=== PATIENT | female | born 1955 | race Caucasian/White ===

== ENCOUNTER → 2019-10-31 09:07 | Outpatient (CLI) | payer BC, SELFPAY ==
[2019-10-31 09:39] LABS: Basophils % 0.6 % (0.1-2.0); Eosinophils # 0.2 K/mm3 (0.0-0.4); Hematocrit 45.1 % (37.0-47.0); Hemoglobin 14.8 g/dL (12.2-16.2); Lymphocytes # 1.7 K/mm3 (0.7-4.5); Lymphocytes % 35.8 % (10-50); Mean Corpuscular HGB Conc 32.9 g/dL (31.8-35.4); Mean Corpuscular Hemoglobin 30.5 pg (27.0-31.2); Mean Corpuscular Volume 92.7 fl (81-99); Mean Platelet Volume 7.8 fl (7.4-10.4); Monocytes # 0.2 K/mm3 (0.1-1.0); Monocytes % 3.3 % (1.7-9.3); Neutrophils # 2.7 K/mm3 (1.8-7.8); Neutrophils % 56.3 % (37.0-80.0); Platelet Count 238 K/mm3 (142-424); Red Blood Count 4.86 M/mm3 (4.20-5.40); Red Cell Distribution Width 13.7 % (11.5-17.5); White Blood Count 4.8 K/mm3 (4.8-10.8)
[2019-10-31 10:03] LABS: Chloride 106 mmol/L (98-107); Potassium 4.6 mmoL/L (3.5-5.1); Sodium 141 mmol/L (136-145)
[2019-10-31 10:05] LABS: Blood Urea Nitrogen 14 mg/dl (7-17); Estimated Glomerular Filt Rate 63 ml/min (>60); GFR (African American) 77 ML/MIN (>60)
[2019-10-31 10:06] LABS: Alanine Aminotransferase 17 U/L (12-78); Albumin Level 3.9 g/dl (3.5-5.0); Albumin/Globulin Ratio 1.6 (1.1-1.8); Alkaline Phosphatase 48 U/L (38-126); Anion Gap 10.6 mEq/L (5-15); Aspartate Amino Transferase 21 U/L (14-36); Bilirubin,Total 0.4 mg/dl (0.2-1.3); Calcium 9.4 mg/dl (8.4-10.2); Carbon Dioxide 29 mmol/L (22.0-30.0); Cholesterol 188 mg/dl (140-200); Globulin 2.4 g/dL (1.3-3.2); Glucose 91 mg/dl (74-100); Magnesium 2.1 mg/dl (1.6-2.3); Total Protein,Serum 6.3 g/dl (6.3-8.2); Triglycerides 138 mg/dl (30-150); VLDL Cholesterol 28 mg/dL (0-40)
[2019-10-31 10:07] LABS: Chol/HDL Ratio 3.5 (1-3.5); HDL Cholesterol 53 mg/dl (40-60)
[2019-10-31 10:18] LABS: Direct LDL Cholesterol 112.58 mg/dL (100-129)
[2019-10-31 10:23] LABS: Free T4 (Free Thyroxine) 0.92 ng/dl (0.78-2.19)
[2019-10-31 10:37] LABS: Thyroid Stimulating Hormone 2.14 uIU/mL (0.465-4.68)
== END ==
PROVIDERS: Visit Provider Physician Assistant
DX: R53.83 Other fatigue; R25.2 Cramp and spasm; Z13.220 Encounter for screening for lipoid disorders; R79.89 Other specified abnormal findings of blood chemistry
CPT/HCPCS: 36415; 80053; 80061; 83735; 84439; 84443; 85025

== ENCOUNTER 2020-03-11 17:39 | Emergency (ER) | payer BC, SELFPAY ==
[2020-03-11 18:06] VITALS: BMI 30.4
--- NOTE | 2020-03-11 18:07 | XR_ITS ---
PROCEDURE: XR TIBIA FIBULA RT 2V CLINICAL INDICATION: INJURY Posttraumatic pain COMPARISON: No exams were available for comparison FINDINGS: No fracture or dislocation. No lytic or blastic change. There is normal mineralization. There are mild osteoarthritic changes of the knee. There is diffuse soft tissue swelling of the lower leg. No radiopaque foreign body. Other findings:None. IMPRESSION: Soft tissue swelling otherwise negative Dictated by: Riccardo Amezcua MD 03/11/2020 23:46 Riccardo Amezcua MD in [place] 03/11/2020 23:46
[2020-03-11 18:25] VITALS: BP 129/76; PULSE 87; RESP 20; TEMP 36.8; O2SAT 98; BMI 30.4
--- NOTE | 2020-03-11 18:34 | HMH.EDUTC ---
[facility] [place] Impression: Injury of calf Disposition: Home, Self-Care Condition on Discharge: Good Instructions: DI for Contusion, How To Perform RICE (Rest, Ice, Compress, Elevate), How to Use a Walking Boot Additional Instructions: *No weight bearing *RICE, Rest the extremity, Ice 15-20 minutes as instructed in [facility] 5-6times daily, Compress- wear the gonzalez wrap Walking boot as discussed as much as possible to help reduce swelling and pain, Elevate the extremity when at rest *Walking boot is for support and help control swelling, use it except in the shower. Be sure that is not to tight but not to loose either Use crutches rollator or walker to ambulate, DO NOT walk on leg *Elevate and ice continued throughout the weekend when resting *Ibuprofen every 6-8 hours as needed for pain an inflammation if your doctor has told you that you can take it. If need something more can take Tylenol in between doses of Ibuprofen to help Immediately follow up with your family doctor for new or worsening of symptoms, or no noticeable improvement over the next 3-[address] Swanson office will call you on Saturday with appointment time make sure you answer when they call Stay off foot/leg Straight to ER if any life threatening symptoms No work until cleared by Dr Swanson Referrals: Valerie Baron PA [Primary Care Provider] - As needed Yessenia Swanson MD [Physician] - Forms: Work/School Release Medical Decision Making - Elias Inquiry Pt receiving controlled substance: No Elias was queried for this patient: No Vital Signs: 03/11/20 18:25 03/11/20 19:16 Temperature 98.2 F 98.2 F Temperature Source Oral Pulse Rate 87 Pulse Rate [Right Brachial] 87 Respiratory Rate 20 20 Blood Pressure 129/76 Blood Pressure [Right Arm] 129/76 Blood Pressure Mean [Right Arm] 93 Blood Pressure Source [Right Arm] Automatic Cuff Blood Pressure Position [Right Arm] Sitting 02 Sat by Pulse Oximetry 98 Oxygen Delivery Method Room Air Orders (Tests/Meds): ORDERS Category Date Time Status Tibia/fibula XR right 2 views [XR tibia fibula RT 2V] Exams 03/11/20 18:07 Taken Stat - Radiology Data #1 Image(s): Tib/Fib Image Reviewed: Yes I reviewed the patient's radiology image Preliminary Findings: No Fracture Seen No acute fracture, soft tissue swelling - Physician Consults Physician Consulted: sky Time: 18:55 Reason -: Orthopedic Eval/Care Comment/Response: Spoke with Dr Swanson and she viewed xray and agreed No acute fracture, performed Booker test and no planter flex noted in affected leg. Sky recommended walking boot, crutches/walker and rice stay off of leg and the office would call her on Saturday with appointment [facility] [place] - General Stated complaint: AO 03/11/20 Injury to r leg Time Seen by Provider: 03/11/20 18:36 Mode of Arrival: Ambulatory Source of Information: Patient Limitations: No Limitations Description of Symptoms (Recalled from Triage Doc. by RN): PATIENT STATES SHE WAS SITTING IN A PORCH SWING APPROX 1700 THIS AFTERNOON WHEN IT BROKE AND HIT HER IN THE BACK OF HER RIGHT LOWER LEG. BRUISING NOTED. HEENT Symptoms (Recalled from RN notes): No Resp Symptoms (Recalled from RN notes): No Skin Symptoms (Recalled from RN notes): No MS Symptoms (Recalled from RN notes): Yes Functional Status (Recalled from RN notes): WNL - History of Present Illness Provider Complaint: Patient states that she was swinging on her porch swing earlier when it broke and she fell and the swing hit her in the back of her right leg in her calf area States that she had immediate bruising and she grabbed a ice pack and placed it on it States that she noticed it immediately started to swell and bruise and hurt when she would walk on it - Related Data Allergies Allergy/AdvReac Type Severity Reaction Status Date / Time No Known Allergies Allergy Verified 09/17/19 09:24 - Worker's Comp Is this a Worker's
[2020-03-11 19:16] VITALS: BP 129/76; PULSE 87; RESP 20; TEMP 36.8; O2SAT 98
== END 2020-03-11 19:18 | disposition home or self-care (01) ==
PROVIDERS: Emergency Provider Nurse Practitioner; PCP Physician Assistant
DX: S89.91XA Unspecified injury of right lower leg, initial encounter (principal); W18.09XA Striking against other object with subsequent fall, initial encounter; Y92.018 Other place in single-family (private) house as the place of occurrence of the external cause
CPT/HCPCS: 73590; 99201

== ENCOUNTER → 2020-04-14 12:21 | Outpatient (CLI) | payer BC, SELFPAY | PROVIDERS: Visit Provider Nurse Practitioner Family | DX: L03.115 Cellulitis of right lower limb (principal) | CPT/HCPCS: 87070; 87077; 87186; 87205 ==

== ENCOUNTER 2020-09-27 15:30 | Outpatient (RCR) | payer BC, SELFPAY ==
--- NOTE | 2020-04-14 10:49 | HMH.PTOPWND ---
Rehab Outpt Wound Evaluation Rehab OP Wound Evaluation Start: 04/14/20 09:36 Freq: Status: Active Protocol: Document 04/14/20 10:39 RAJAT (Rec: 04/14/20 10:49 PHORENEE [id number]) Electronically Signed By Kevin Panchal, PT 04/14/20 10:39 Subjective/History History History Pt is 65 yowf who presents with R posterior calf wounds x ~ 2 wks after initial injury 03/11/2020. She reports she fell off of her porch swing with resulting R calf bruising . as the hematoma healed she peeled off an area of suspected skin and found a wound underneath. She reports no significant PMH, but does reports edema in B LE frequently at baseline. Subjective Subjective Pt reports tenderness throughout the seth-wound area 3/4. Wound Eval Wound Right Posterior Lateral Calf Wound Type Contusion Is This a Chronic Wound Yes Wound Length (cm) 3.8 Wound Width (cm) 3.8 Wound Depth (cm) 0.7 Wound Bed Appearance Beefy Red,Yellow Percentage Granulated (%) 50 Percentage of Slough (%) 50 Wound Margins Description Well Defined Tunneling Position 10 Tunneling Depth (cm) 4.4 Surrounding Tissue Appearance Crowder Edema Type Pitting Edema Degree 2+ Query Text:1+ Trace, Barely Detectable, Rebound 15-30 seconds 2+ Moderate, Slight Indentation, Rebound 10-20 seconds 3+ Deep, Deeper Indentation, Rebound > 30 seconds 4+ Very Deep, Rebound > 60 seconds Edema Appearance Puffy Drainage Description Serosanguineous Drainage Amount Small Wound Topical Solution/Irrigant Saline Irrigant Packing Type Specialty Absorptive Comment versatel, opticell Primary Dressing Composite Comment optifoam gentle Wound Secondary Dressing Type Gauze Roll/Wrap,Adhering Gauze Roll Wound Debridement Method Sharps,Forceps,Gauze Wound Debridement Amount of Tissue Moderate Removed Wound Debridement Result Healthy Tissue Revealed Dressing Change Patient Tolerance Tolerated Well Right Posterior Medial Calf Wound Type Contusion Is This a Chronic Wound
--- NOTE | 2020-05-17 16:16 | HMH.RHREAS ---
Rehab Reassessment Rehab OP Re-assessment Start: 05/17/20 16:12 Freq: Status: Active Protocol: Document 05/17/20 16:13 RAJAT (Rec: 05/17/20 16:16 RAJAT [id number]) Electronically Signed By Kevin Panchal, PT 05/17/20 16:13 Rehab Re-assessment Subjective Subjective Pt reports less pain in the R lower leg, more itching noted. Objective Objective Notes R Calf wounds (in cm)- Medial: L= 3.2, W= 4.3, Tunneling @ 1 o'clock= 0.5 Lateral: L= 4.0, W=3.2 Assessment Progress Assessment Progressing as Expected Assessment Notes Pt with no real depth to wounds noted at this time, full granulation tissue present. Drainage continues to be increased, but non- purulent. Patient goals met ST,2,3 Goals Not Met LT,2,3,4 Revised Goals none Plan Plan Continue per initial POC. Frequency of Therapy 2 x/wk Duration of therapy 8 wks Time and Billing Re-Eval Time 15 Re-Eval Billing Units 1 PHYSICIAN CERTIFICATION: I certify the specified therapy services for Esperanza Burden are required, authorized, and reviewed every 30 days.
--- NOTE | 2020-06-23 16:27 | HMH.RHREAS ---
Rehab Reassessment Rehab OP Re-assessment Start: 05/17/20 16:12 Freq: Status: Active Protocol: Document 06/23/20 16:25 RAJAT (Rec: 06/23/20 16:26 RAJAT [id number]) Electronically Signed By Kevin Panchal, PT 06/23/20 16:25 Rehab Re-assessment Subjective Subjective Pt with no new c/o pain, less seth-wound tenderness. Objective Objective Notes R posterior calf wound: L= 5.8 cm, W= 5.2 cm Assessment Progress Assessment Progressing as Expected Assessment Notes Improving epithelial tissue and less drainage noted. Patient goals met ST,2,3 Goals Not Met LT,2,3,4 Revised Goals none Plan Plan Continue per initial POC. Frequency of Therapy 2 x/wk Duration of therapy 8 wks Time and Billing Re-Eval Time 15 Re-Eval Billing Units 1 PHYSICIAN CERTIFICATION: I certify the specified therapy services for Esperanza Burden are required, authorized, and reviewed every 30 days.
--- NOTE | 2020-07-26 16:28 | HMH.RHREAS ---
Rehab Reassessment Rehab OP Re-assessment Start: 05/17/20 16:12 Freq: Status: Active Protocol: Document 07/26/20 16:26 RAJAT (Rec: 07/26/20 16:28 RAJAT [id number]) Electronically Signed By Kevin Panchal, PT 07/26/20 16:26 Rehab Re-assessment Subjective Subjective Pt with no c/o increased pain or discomfort. Reports no R LE edema. Objective Objective Notes R calf wound: L= 4.2 cm, W= 4. 9 cm. Granulation at wound base. Drainage remains heavy, serous in nature. Assessment Progress Assessment Progressing as Expected Assessment Notes Wound appears to be very healthy at base, but some stagnation is likely at this point. Continues to drain copious amts of serous fluid. Patient goals met ST,2,3 Goals Not Met LT,2,3,4 Revised Goals none Plan Plan Continue per initial POC. Frequency of Therapy 2 x/wk Duration of therapy 8 wks Time and Billing Re-Eval Time 15 Re-Eval Billing Units 1 PHYSICIAN CERTIFICATION: I certify the specified therapy services for Esperanza Burden are required, authorized, and reviewed every 30 days.
== END 2020-09-27 15:35 | disposition home or self-care (01) ==
LOC: PT 15:30
PROVIDERS: PCP Physician Assistant; Visit Provider Nurse Practitioner Family
DX: L03.90 Cellulitis, unspecified (principal); S81.801D Unspecified open wound, right lower leg, subsequent encounter
CPT/HCPCS: 97140; 97162; 97164; 97597; 97598; 97760

== ENCOUNTER → 2021-01-03 09:21 | Outpatient (CLI) | payer BC, SELFPAY ==
--- NOTE | 2021-01-03 09:25 | XR_ITS ---
PROCEDURE: XR DEXA AXIAL SKELETON CLINICAL HISTORY: SCREENING FOR OSTEPOROSIS,POST MENOPAUSAL COMPARISON: No exams were available for comparison FINDINGS: The right hip BMD is 0.621 with a T-score of -2.1. The left hip BMD is 0.726 with a T-score of -1.8. The lumbar spine BMD is 0.850 with a T-score of -1.8. IMPRESSION: This patient is considered osteopenic according to the World Health Organization criteria. Bone density is between 10 and 25 percent below young normal. Fracture risk is moderate. Treatment is advised. Based on these results a follow-up exam is recommended in 2 years. Dictated by: Abraham Randall MD 01/06/2021 11:15 Abraham Randall MD in [place] 01/06/2021 11:15
== END ==
PROVIDERS: PCP Physician Assistant; Visit Provider Physician Assistant
DX: Z13.820 Encounter for screening for osteoporosis (principal); Z78.0 Asymptomatic menopausal state
CPT/HCPCS: 77080

== ENCOUNTER → 2021-02-13 16:52 | Outpatient (CLI) | payer OTHER, SELFPAY ==
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
== END ==
PROVIDERS: PCP Family Medicine; Visit Provider Family Medicine
DX: S13.4XXA Sprain of ligaments of cervical spine, initial encounter (principal)
CPT/HCPCS: 72050

== ENCOUNTER → 2022-01-13 10:06 | Outpatient (CLI) | payer BC, SELFPAY ==
[2022-01-13 10:16] LABS: Basophils # 0.1 K/mm3 (0-0.2); Basophils % 1.8 % (0.1-2.0); Eosinophils # 0.2 K/mm3 (0.0-0.4); Eosinophils % 3.1 % (0.1-12.0); Hematocrit 46.4 % (37.0-47.0); Hemoglobin 14.2 g/dL (12.2-16.2); Lymphocytes # 1.6 K/mm3 (0.7-4.5); Lymphocytes % 27.8 % (10-50); Mean Corpuscular HGB Conc 30.7 g/dL (31.8-35.4); Mean Corpuscular Hemoglobin 30.8 pg (27.0-31.2); Mean Corpuscular Volume 100.4 fl (81-99); Mean Platelet Volume 7.8 fl (7.4-10.4); Monocytes # 0.3 K/mm3 (0.1-1.0); Monocytes % 4.5 % (1.7-9.3); Neutrophils # 3.6 K/mm3 (1.8-7.8); Neutrophils % 62.8 % (37.0-80.0); Platelet Count 220 K/mm3 (142-424); Red Blood Count 4.62 M/mm3 (4.20-5.40); Red Cell Distribution Width 13.8 % (11.5-17.5); White Blood Count 5.8 K/mm3 (4.8-10.8)
[2022-01-13 11:01] LABS: Chloride 109 mmol/L (98-107)
[2022-01-13 11:02] LABS: Potassium 4.8 mmoL/L (3.5-5.1); Sodium 140 mmol/L (136-145)
[2022-01-13 11:04] LABS: Alanine Aminotransferase 22 U/L (12-78); Alkaline Phosphatase 43 U/L (38-126); Anion Gap 10.8 mEq/L (5-15); Aspartate Amino Transferase 37 U/L (14-36); Bilirubin,Total 0.8 mg/dl (0.2-1.3); Blood Urea Nitrogen 17 mg/dl (7-17); Carbon Dioxide 25 mmol/L (22.0-30.0); Cholesterol 159 mg/dl (140-200); Estimated Glomerular Filt Rate 72 ml/min (>60); GFR (African American) 87 ML/MIN (>60); Triglycerides 128 mg/dl (30-150); VLDL Cholesterol 26 mg/dL (0-40)
[2022-01-13 11:05] LABS: Albumin Level 4.1 g/dl (3.5-5.0); Albumin/Globulin Ratio 1.5 (1.1-1.8); Calcium 9.5 mg/dl (8.4-10.2); Chol/HDL Ratio 3.2 (1-3.5); Globulin 2.7 g/dL (1.3-3.2); Glucose 94 mg/dl (74-100); HDL Cholesterol 50 mg/dl (40-60); Magnesium 1.9 mg/dl (1.6-2.3); Total Protein,Serum 6.8 g/dl (6.3-8.2)
[2022-01-13 11:16] LABS: Direct LDL Cholesterol 63.98 mg/dL (100-129)
[2022-01-13 11:36] LABS: Thyroid Stimulating Hormone 1.51 uIU/mL (0.465-4.68)
== END ==
PROVIDERS: PCP Physician Assistant; Visit Provider Physician Assistant
DX: R25.2 Cramp and spasm (principal); Z13.220 Encounter for screening for lipoid disorders
CPT/HCPCS: 36415; 80053; 80061; 83735; 84443; 85025

== ENCOUNTER → 2023-01-14 08:19 | Outpatient (CLI) | payer BC, SELFPAY ==
[2023-01-14 10:33] LABS: Chloride 106 mmol/L (98-107); Potassium 4.8 mmoL/L (3.5-5.1); Sodium 140 mmol/L (136-145)
[2023-01-14 10:35] LABS: Alanine Aminotransferase 23 U/L (12-78); Alkaline Phosphatase 57 U/L (38-126); Aspartate Amino Transferase 25 U/L (14-36); Bilirubin,Total 0.3 mg/dl (0.2-1.3); Blood Urea Nitrogen 29 mg/dl (7-17); Estimated Glomerular Filt Rate 62 ml/min (>60); GFR (African American) 76 ML/MIN (>60)
[2023-01-14 10:36] LABS: Albumin Level 4.2 g/dl (3.5-5.0); Albumin/Globulin Ratio 1.8 (1.1-1.8); Anion Gap 15.8 mEq/L (5-15); Calcium 9.1 mg/dl (8.4-10.2); Carbon Dioxide 23 mmol/L (22.0-30.0); Chol/HDL Ratio 2.9 (1-3.5); Cholesterol 177 mg/dl (140-200); Globulin 2.4 g/dL (1.3-3.2); Glucose 83 mg/dl (74-100); HDL Cholesterol 61 mg/dl (40-60); Total Protein,Serum 6.6 g/dl (6.3-8.2); Triglycerides 166 mg/dl (30-150); VLDL Cholesterol 33 mg/dL (0-40)
[2023-01-14 10:44] LABS: NT Pro Brain Natriuretic Pep. 61.9 pg/mL (0-125)
== END ==
PROVIDERS: PCP Physician Assistant; Visit Provider Physician Assistant
DX: R79.89 Other specified abnormal findings of blood chemistry (principal); R60.0 Localized edema; Z13.220 Encounter for screening for lipoid disorders; Z79.899 Other long term (current) drug therapy; R06.02 Shortness of breath
CPT/HCPCS: 36415; 80053; 80061; 83880

== ENCOUNTER → 2023-01-18 08:16 | Outpatient (CLI) | payer BC, SELFPAY ==
--- NOTE | 2023-01-18 08:21 | MM_ITS ---
PROCEDURE INFORMATION: Exam: Bilateral Screening 3D Mammography Exam date and time: 01/18/2023 8:23 AM Age: 68 years old Clinical indication: Screening examination TECHNIQUE: Imaging protocol: Bilateral Screening tomosynthesis and 2D mammography including computer-aided detection (CAD) when performed. COMPARISON: DMSB DIG MAMM-SCREEN DEANGELO 02/26/2014 4:04 PM FINDINGS: MAMMOGRAPHY: Breast composition: The breasts are almost entirely fatty. Mass: None. Architectural distortion: None. Calcifications: No suspicious calcifications. Asymmetric density: None. Skin thickening: None. Axillary adenopathy: None. IMPRESSION: No mammographic evidence of malignancy. Annual screening is recommended unless otherwise clinically indicated. ASSESSMENT: BI-RADS Category 1: Negative
--- NOTE | 2023-01-18 08:21 | XR_ITS ---
FINAL REPORT CLINICAL HISTORY: Postmenopausal COMPARISON: 01/03/2021 FINDINGS: Using L1-4, the bone mineral density of the spine is 0.861 g/cm2, corresponding to T-score of -1.7. Using the left hip, the bone mineral density of the femoral neck is 0.706 g/cm2, corresponding to a T-score of -1.9. Using the right hip: The bone mineral density of the femoral neck is 0.606 g/cm2, corresponding to a T-score of -2.2. FRAX 10 year fracture risk is 11 for a hip fracture and 1.9 for a major osteoporotic fracture. IMPRESSION: Low bone mineral density of the lumbar spine and hips not significantly changed as compared to the prior exam. NOTE: T-score: Standard deviation compared with peak bone mass of young adult mean. *Following the recommendations of the International Society of Bone densitometry, classification of hip BMD is based on the lower of two T-scores; total hip or femoral neck. Reviewed, Interpreted and Dictated by Rajendra Hartley III, MD Transcribed by Jessica García Authenticated and [facility]
== END ==
PROVIDERS: PCP Physician Assistant; Visit Provider Physician Assistant
DX: R06.02 Shortness of breath (principal); Z12.31 Encounter for screening mammogram for malignant neoplasm of breast; Z78.0 Asymptomatic menopausal state
CPT/HCPCS: 77063; 77067; 77080; 93306

== ENCOUNTER 2024-02-13 09:03 | Emergency (ER) | payer BC, SELFPAY ==
[2024-02-13] VITALS (8 sets, daily range): BP systolic 130–196; BP diastolic 79–94; PULSE 64–78; RESP 16; TEMP 36.7–36.8; O2SAT 97–99; BMI 34.5
--- NOTE | 2024-02-13 09:23 | ECG_ITS ---
APPROVED REPORT Exam: Resting ECG HR:83 bpm ECG Measurements Heart Rate 83 AXES OK 152 P 141 QRSd 88 QRS -5 QT 346 T 101 QTc 386 Conclusion sinus rhythm Electronically signed by : PEPITO CONTEH, 02/14/2024 08:48:45
--- NOTE | 2024-02-13 09:24 | PC.NURSE ---
dr de la cruz at bedside
--- NOTE | 2024-02-13 09:27 | CT_ITS ---
FINAL REPORT CLINICAL HISTORY: Severe R sided headache, R sided facial droop COMPARISON: None FINDINGS: CT NECK ANGIO, WITHOUT AND WITH CONTRAST TECHNIQUE: Thin section axial CT with IV contrast supplemented with 3D MIP reconstruction NASCET criteria and technique was utilized during interpretation. FINDINGS: Aortic arch: Arch shows no significant narrowing. Great vessel origins are widely patent. Right carotid: No significant stenosis is seen of the cervical common or internal carotid artery. Left carotid: No significant stenosis is seen of the cervical common or internal carotid artery. Vertebrals: Right vertebral artery is dominant. No significant stenosis is present. IMPRESSION: No significant stenosis of the cervical carotid arteries This study was performed using automated techniques to achieve radiation exposure as low as reasonably Reviewed, Interpreted and Dictated by Dustin Zamudio MD Transcribed by Tanya Stanford Authenticated and [facility]
--- NOTE | 2024-02-13 09:27 | CT_ITS ---
FINAL REPORT CLINICAL HISTORY: Severe R sided headache, R sided facial droop COMPARISON: None FINDINGS: CTA HEAD TECHNIQUE: Thin section axial CT with contrast with 3D MIP reconstruction FINDINGS: No aneurysm is seen. Major intracranial vessels are patent without significant stenosis. . IMPRESSION: Unremarkable This study was performed using automated techniques to achieve radiation exposure as low as reasonably achievable Reviewed, Interpreted and Dictated by Dustin Zamudio MD Transcribed by Tanya Stanford Authenticated and . [facility]
--- NOTE | 2024-02-13 09:27 | CT_ITS ---
FINAL REPORT TECHNIQUE: Axial imaging of the head was obtained without contrast. This study was performed with techniques to keep radiation doses as low as reasonably achievable, (ALARA). Individualized dose reduction techniques using automated exposure control or adjustment of mA and/or kV according to the patient''s size were employed. CLINICAL HISTORY: Severe R sided headache, R sided facial droop COMPARISON: None FINDINGS: The ventricles are normal in size. There is no evidence of hemorrhage. No masses are identified. No extra-axial fluid is seen. The sinuses are normal. There is no acute osseous abnormality. IMPRESSION: No acute intracranial abnormality. Reviewed, Interpreted and Dictated by Dustin Zamudio MD Transcribed by Tanya Stanford Authenticated and [facility]
[2024-02-13] MEDS: ASPIRIN 325MG TABLET 325 MG PO (09:38)
[2024-02-13] MEDS: ACETAMINOPHEN 1,000MG/100ML VIAL 1000 MG IV (09:38)
[2024-02-13] MEDS: DEXAMETHASONE 4MG/ML 1ML VIAL 10 MG IV (09:39)
[2024-02-13] MEDS: KETOROLAC 30MG/ML VIAL 15 MG IV (09:39)
[2024-02-13] MEDS: diphenhydrAMINE 50MG/ML VIAL 25 MG IV (09:39)
[2024-02-13] MEDS: PROCHLORPERAZINE 10MG/2ML VIAL 10 MG IV (09:39)
--- NOTE | 2024-02-13 09:44 | HMH.EDGENADL ---
Discharge Plan Disposition Patient Disposition: Home, Self-Care Prescriptions Prescriptions: New prednisone 20 mg tablet 40 mg PO DAILY 5 Days Qty: 10 0RF Referrals Follow up/Referrals: Valerie Baron PA [Primary Care Provider] - See instructions Activity Restrictions/Add. Instructions Additional Instructions/Restrictions: Call your family doctor to establish care for this visit to the emergency department and schedule follow-up within 48 hours to ensure improvement. If you have any worsening of your condition or any other concerning signs or symptoms, return to the emergency department or your primary care doctor for further evaluation. Prednisone 40 mg for 5 days. Clinical Impressions Clinical Impression: Rodriguez's palsy Print Language Print Language: Slovenian Discharge ED Provider: J Luis Sanchez General Adult HPI General Chief complaint: Neuro Symptoms/Deficit Stated complaint: headache, face swollen Time Seen by Provider: 02/13/24 09:19 Mode of Arrival: Ambulatory Source of Information: Patient Limitations: No Limitations Description of Symptoms (Recalled from ER Triage Doc. by RN): pt c/o a PINK X2d that is a dull ache, feels heavy, is a 2/10, and comes and goes. pt also reports she woke up this morning with the right side of her tongue tingling and R facial droop. Upon arrival from the [facility] the NIH was 3 for complete facial droop on the R side. BSFS @0921 85. pt also presents with BLE 2+ edema, she denies heart failure dx. pt has a hx of bells palsy. History of Present Illness HPI narrative: Please note that above description of symptoms, in this electronic medical record under categorization of recalled from ER triage doctor by RN are reflective of an initial nursing assessment, however, is not reflective of my full history and physical exam that was personally taken and clarified. Consequentially, this preceding description of symptoms, which may include the patient's categorized chief complaint in the EMR, do not reflect my personal clinical impression, and the ultimate description of history of present illness and patient stated complaints should be deferred to this section of the note. Unless stated otherwise or congruent with this section of the note, additional signs, symptoms, or incongruence should be interpreted as inaccurate with my clinical impression. Related Data Previous Rx's ?Medication ?Instructions ?Recorded prednisone 20 mg tablet 40 mg (2 x 20 mg) PO DAILY 5 days 02/13/24 #10 tabs Allergies Allergy/AdvReac Type Severity Reaction Status Date / Time No Known Allergies Allergy Verified 02/13/24 09:45 [facility] Disclaimer: The information contained in this section may have been updated after the patient was seen, as this information can be updated by other users. Social History Smoking Status: Never smoker alcohol intake: never current occupational status: other Travel in the last 8 weeks: None ROS Obtained: Yes All systems reviewed & no additional complaints except as documented Physical Exam General General appearance: alert and in no apparent distress Head Head exam: atraumatic and normocephalic Eye Eye exam: Present PERRL, EOMI and other (Patient unable to fully close right eye); Absent conjunctival injection ENT ENT exam: Present mucous membranes moist Neck Neck exam: Present normal inspection, full ROM and trachea midline Respiratory Respiratory exam: Present normal lung sounds bilaterally; Absent respiratory distress, wheezes, stridor, accessory muscle use or prolonged expiratory phase Cardiovascular Cardiovascular exam: Present regular rate, normal rhythm and other (Pulses equal symmetric in upper and lower extremities) Abdominal Exam Abdominal exam: Present soft; Absent distention, tenderness or pulsatile mass Extremities Exam Extremities exam: Present edema (Bilateral nonpitting lower extremity) Neurological Exam Neurological exam: Present alert, oriented X3, normal gait and motor sensory deficit; Absent CN II-XII intact Skin Skin exam: Present warm and dry; Absent diaphoresis or erythema Medical Decision Making Medical Records Medical records reviewed: Yes I reviewed the patient's medical records. Elias Inquiry Pt receiving controlled substance: No Elias was queried for this patient: No Vital Signs: 02/13/24 09:04 02/13/24 09:20 02/13/24 09:31 Temperature 98.0 F 98.2 F Temperature Source Oral Oral Pulse Rate 78 Pulse Rate [Left] 78 Pulse Rate [Radial] 78 Respiratory Rate 16 16 Blood Pressure 156/83 H Blood Pressure [Right Arm] 187/94 H 196/93 H Blood Pressure Mean 130 Blood Pressure Mean [Right Arm] 125 127 Blood Pressure Source [Right Arm] Automatic Cuff Automatic Cuff Blood Pressure Position [Right Arm] Sitting Sitting 02 Sat by Pulse Oximetry 98 99 98 Oxygen Delivery Method Room Air Room Air Room Air 02/13/24 10:00 02/13/24 10:31 02/13/24 11:01 Temperature Temperature Source Pulse Rate 77 65 67 Pulse Rate [Left] Pulse Rate [Radial] Respiratory Rate Blood Pressure 138/86 150/82 H 140/79 Blood Pressure [Right Arm] Blood Pressure Mean 114 Blood Pressure Mean [Right Arm] Blood Pressure Source [Right Arm] Blood Pressure Position [Right Arm] 02 Sat by Pulse Oximetry 97 98 99 Oxygen Delivery Method Room Air Room Air Room Air Lab Data Lab Results 02/13/24 09:40: WBC 5.9, RBC 4.90, Hgb 15.3, Hct 45.8, MCV 93.3, MCH 31.2, MCHC 33.5, RDW 13.9, Plt Count 230, MPV 7.6, Neut % (Auto) 60.6, Lymph % (Auto) 29.3, [place] % (Auto) 4.3, Eos % (Auto) 5.1, Baso % (Auto) 0.8, Neut # (Auto) 3.6, Lymph # (Auto) 1.7, [place] # (Auto) 0.3, Eos # (Auto) 0.3, Baso # (Auto) 0.1, Sodium 141, Potassium 4.2, Chloride 109 H, Carbon Dioxide 26, Anion Gap 10.2, BUN 21 H, Creatinine 1.00, Estimated Creat Clear 73, Estimated GFR 55 L, Est GFR ( Amer) 67, Glucose 94, Calcium 9.4, Total Bilirubin 0.5, AST 36, ALT 39, Alkaline Phosphatase 66, Troponin I < 0.01, NT-Pro-B Natriuret Pep 186 H, Total Protein 7.2, Albumin 4.3, Globulin 2.9, Albumin/Globulin Ratio 1.5 02/13/24 09:40 02/13/24 09:40 Orders (Tests/Meds): ED MEDICATIONS Discontinued Medications Generic Name Dose Route Start Last Admin Trade Name aRshi PRN Reason Stop Dose Admin Acetaminophen 1,000 mg 02/13/24 09:27 02/13/24 09:38 Acetaminophen 1,000mg/100ml Vial IV 02/13/24 09:28 1,000 mg ONCE ONE Administration Aspirin 325 mg 02/13/24 09:30 02/13/24 09:38 Aspirin 325mg Tablet PO 02/13/24 09:31 325 mg ONCE ONE Administration Dexamethasone Sodium Phosphate 10 mg 02/13/24 09:27 02/13/24 09:39 Dexamethasone 4mg/Ml 1ml Vial IV 02/13/24 09:28 10 mg ONCE ONE Administration Diphenhydramine HCl 25 mg 02/13/24 09:27 02/13/24 09:39 Diphenhydramine 50mg/Ml Vial IV 02/13/24 09:28 25 mg ONCE ONE Administration Iopamidol 100 ml 02/13/24 10:40 02/13/24 10:41 Iopamidol-370 (76%);100ml Bottle IV 02/13/24 10:41 100 ml ONCE ONE Administration Ketorolac Tromethamine 15 mg 02/13/24 09:27 02/13/24 09:39 Ketorolac 30mg/Ml Vial IV 02/13/24 09:28 15 mg ONCE ONE Administration Prochlorperazine Edisylate 10 mg 02/13/24 09:27 02/13/24 09:39 Prochlorperazine 10mg/2ml Vial IV 02/13/24 09:28 10 mg ONCE ONE Administration Sodium Chloride 50 ml 02/13/24 10:40 02/13/24 10:41 0.9 % Sodium Chloride 50 Ml Vial IV 02/13/24 10:41 50 ml ONCE ONE Administration Sodium Chloride 10 ml 02/13/24 10:40 02/13/24 10:41 Sodium Chloride 0.9% 10ml Syr (Rad Only) IV 02/13/24 10:41 10 ml ONCE ONE Administration ORDERS Category Date Time Status CT angio head Stat Cat Scan 02/13/24 09:[address] angio neck Stat Cat Scan 02/13/24 09:[address] head/brain wo con Stat Cat Scan 02/13/24 09:27 Completed CBC w/Auto Diff [Complete Blood Count Auto Diff] Stat Lab 02/13/24 09:40 Completed CMP [Comprehensive Metabolic Panel] Stat Lab 02/13/24 09:40 Completed Lyme Ab, Modified 2-Tier Stat Lab 02/13/24 09:57 Received NT Pro Brain Natriuretic Pep. Stat Lab 02/13/24 09:40 Completed Trop I [Troponin I] Stat Lab 02/13/24 09:40 Completed Troponin I Q3H Lab 02/13/24 12:30 Ordered Troponin I Q3H Lab 02/13/24 15:30 Ordered Medical Decision Narrative: This is a 69-year-old female with a history of Rodriguez's palsy in the past, remote headache and migraine disorder, bilateral lower extremity osteoarthritis only on naproxen presenting with headache and right-sided facial droop. Patient states that headache started 2 days prior to this on 02/10. Tried taking meds at home, last night, 02/11, fell asleep open headache would resolve. Patient states she woke up this morning a couple hours prior to this visit and realized that the right side of her face felt different. Patient looked in the mirror, realized that it was dripping, went to the urgent care. Urgent care sent her over here. Patient denies chest pain, upper or lower extremity weakness, balance difficulties, vision changes, difficulty speaking, difficulty swallowing, word finding difficulty, or any other neurologic deficits. Denies any recent travel, tick exposure, illness, medication, or any other concerns. No rash, swollen joints, chest pain, shortness of breath, confusion, or any other concerns. History was obtained via conversation with patient. On arrival, patient hemodynamically stable, alert, oriented x4, appropriate, GCS 15, moving all extremities spontaneously, pupils equal and reactive to light. Full physical exam performed and significant for patient does have NIHSS 3 for complete right-sided facial droop. It does involve the forehead. Patient has no ability to move right side of forehead, close right eye. Also has flattening of the right nasolabial fold. No dysarthria, dysphagia, upper or lower extremity deficits. Visual travis intact, cranial nerves otherwise intact. Motor, sensory, cerebellar exam also intact. No evidence of photophobia. Cardiopulmonary exam within normal limits. differential includes Rodriguez's palsy, complex migraine, infectious versus inflammatory neuropathy, parotitis, cervical dissection, intracranial dissection, CVA, among others. Patient placed on continuous cardiac monitoring and continuous pulse ox with initial blood pressure 196/93, heart rate 78, saturation 99% on room air. Independent interpretation of EKG shows sinus rhythm 83 beats a minute with no ST or T wave changes concerning for ischemia. Patient does have low amplitude QRS. UT 152, QRS 88, QTc 386. Patient was given migraine cocktail and aspirin for symptomatic management and correction of underlying abnormalities. Workup independently interpreted and significant for nonactionable CBC or chemistry. Patient's troponin negative. CT head without acute intracranial hemorrhage, CTA head and neck without dissection or vascular normality see radiology read for full review of final results. On reevaluation, patient resting comfortably, no headache. 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 Given the number of Lyme disease cases, Lyme titers were sent. These still pending at time of discharge. Because patient at baseline without signs or symptoms of clinical decompensation, deemed appropriate for discharge. Results were relayed to patient who voiced understanding and were agreeable to outpatient management and follow up. I discussed my clinical impression with patient and answered all questions. At this time, the evidence for any other entities in the differential is insufficient to warrant any further testing or ED observation. This was explained as well. Advisory was given that persistent or worsening symptoms require further evaluation. I confirmed the understanding of this discussion. Phonograph Needle Tip Maker disclaimer Much of this encounter note is an electronic dry cell tester spoken language to printed text. Electronic dry cell tester of the spoken language may permit errors. Although I have reviewed the note, some errors may still exist. Critical Care Critical Care Time Critical Care Time: No
[2024-02-13 09:51] LABS: Basophils # 0.1 K/mm3 (0-0.2); Basophils % 0.8 % (0.1-2.0); Eosinophils # 0.3 K/mm3 (0.0-0.4); Eosinophils % 5.1 % (0.1-12.0); Hematocrit 45.8 % (37.0-47.0); Hemoglobin 15.3 g/dL (12.2-16.2); Lymphocytes # 1.7 K/mm3 (0.7-4.5); Lymphocytes % 29.3 % (10-50); Mean Corpuscular HGB Conc 33.5 g/dL (31.8-35.4); Mean Corpuscular Hemoglobin 31.2 pg (27.0-31.2); Mean Corpuscular Volume 93.3 fl (81-99); Mean Platelet Volume 7.6 fl (7.4-10.4); Monocytes # 0.3 K/mm3 (0.1-1.0); Monocytes % 4.3 % (1.7-9.3); Neutrophils # 3.6 K/mm3 (1.8-7.8); Neutrophils % 60.6 % (37.0-80.0); Platelet Count 230 K/mm3 (142-424); Red Cell Distribution Width 13.9 % (11.5-17.5); White Blood Count 5.9 K/mm3 (4.8-10.8)
[2024-02-13 09:56] LABS: Chloride 109 mmol/L (98-107); Potassium 4.2 mmoL/L (3.5-5.1); Sodium 141 mmol/L (136-145)
[2024-02-13 09:59] LABS: Alanine Aminotransferase 39 U/L (12-78); Albumin Level 4.3 g/dl (3.5-5.0); Albumin/Globulin Ratio 1.5 (1.1-1.8); Alkaline Phosphatase 66 U/L (38-126); Anion Gap 10.2 mEq/L (5-15); Aspartate Amino Transferase 36 U/L (14-36); Bilirubin,Total 0.5 mg/dl (0.2-1.3); Blood Urea Nitrogen 21 mg/dl (7-17); Carbon Dioxide 26 mmol/L (22.0-30.0); Creatinine Clearance Estimated 73 mL/min (50-200); Estimated Glomerular Filt Rate 55 ml/min (>60); GFR (African American) 67 ML/MIN (>60); Globulin 2.9 g/dL (1.3-3.2); Total Protein,Serum 7.2 g/dl (6.3-8.2)
[2024-02-13 10:00] LABS: Calcium 9.4 mg/dl (8.4-10.2); Glucose 94 mg/dl (74-100)
--- NOTE | 2024-02-13 10:09 | PC.NURSE ---
I rounded on the pt, she states her PINK has improved but is not completely gone. I took a pillow to the pt and helped adjust her bed to try to make it more comfortable. no new complaints. no other needs voiced. call perez in reach.
[2024-02-13 10:10] LABS: NT Pro Brain Natriuretic Pep. 186 pg/mL (0-125)
--- NOTE | 2024-02-13 10:16 | PC.NURSE ---
PT TO CT
[2024-02-13 10:20] LABS: Troponin I < 0.01 ng/ml (0.00-0.034)
[2024-02-13] MEDS: IOPAMIDOL-370 (76%);100ML BOTTLE 100 ML IV (10:41)
[2024-02-13] MEDS: 0.9 % SODIUM CHLORIDE 50 ML VIAL IV (10:41)
[2024-02-13] MEDS: SODIUM CHLORIDE 0.9% 10ML SYR (RAD ONLY) 10 ML IV (10:41)
[2024-02-14 17:43] LABS: Lyme Ab CIA Negative (Negative)
== END 2024-02-13 11:51 | disposition home or self-care (01) ==
LOC: UTC 09:05 → ER 09:18
PROVIDERS: Emergency Provider Emergency Medicine; PCP Physician Assistant
DX: G51.0 Bell's palsy (principal); R51.9 Headache, unspecified
CPT/HCPCS: 70450; 70496; 70498; 80053; 83880; 84484; 85025; 93005; 96374; 96375; 99285; J0131; J0780; J1100; J1200; J1885; Q9967

== ENCOUNTER 2025-01-07 08:42 | Outpatient (CLI) | payer BC, SELFPAY ==
--- NOTE | 2025-01-07 08:45 | US_ITS ---
FINAL REPORT TECHNIQUE: Abdominal aortic aneurysm screening CLINICAL HISTORY: screening for AAA COMPARISON: None FINDINGS: ABDOMINAL AORTIC ANEURYSM SCREENING: Ultrasound examination of the aorta and iliac vessels was performed. The aorta is unremarkable in appearance without evidence of focal aneurysm. No significant plaque is identified. The aorta measures 1.8 cm in greatest diameter. The iliac bifurcation and iliac vessels are unremarkable. IMPRESSION: No ultrasound evidence of an abdominal aortic aneurysm. Reviewed, Interpreted and Dictated by Ryan Shipman MD Transcribed by Kiana Walters Authenticated and [facility]
--- OUTSIDE RECORDS SUMMARY | 2025-01-07 08:45 | XMS_ITS | Clinical Summary ---
Author Organization [facility] Address [address] [place] [address] Care Team Providers Care Medical Billing Assistant Name Role Phone Valerie Baron Primary Care Provider [phone] Social History Tobacco Use Types Packs/Day Years Used Date Smoking Tobacco: Never Assessed Comments Unknown Sex and Gender Information Value Date Recorded Sex Assigned at Not on file Legal Sex Female 7:38 PM EDT Gender Identity Not on file Sexual Orientation Not on file Last Filed Vital Signs Vital Sign Reading Time Taken Comments Blood Pressure 120/65 01/18/2023 10:32 AM EDT Pulse - - Temperature - - Respiratory Rate - - Oxygen Saturation - - Inhaled Oxygen Concentration - - Weight 79.4 kg (175 lb) 01/18/2023 10:32 AM EDT Height 154.9 cm (5' 1 ) 01/18/2023 10:32 AM EDT Body Mass Index 33.07 01/18/2023 10:32 AM EDT Plan of Treatment Health Maintenance Due Date Last Done Comments [facility]-Bone Density Scan 1956 [facility]-Depression Screening 1956 [facility]-Hepatitis C Screening 1955 [facility]-/Child/Adol SDOH Screenings 1955 [facility]-Obesity Intervention 01/03/1962 [facility]- SDOH Screenings 01/03/1974 [facility]-Adult SDOH Screenings 01/03/1974 [facility]-DTaP,Tdap,and Td Vaccine s (1 - Tdap) 01/03/1975 CT Colonography 01/03/2001 Colonoscopy 01/03/2001 FIT-DNA 01/03/2001 FIT 01/03/2001 FOBT 01/03/2001 Sigmoidoscopy 01/03/2001 [facility]-Colorectal Cancer Screening 01/03/2001 [facility]-Breast Cancer Screening 01/03/2006 [facility]-Pneumococcal Vaccine: 50 + Years (1 of 1 - PCV) 01/03/2006 [facility]-Zoster Vaccines (1 of 2) 01/03/2006 [id number] Vaccine (1 - 20 24-25 season) 2024 [facility]-Influenza Vaccine (Seas[place] n Ended) 2025 [facility]-RSV Vaccine: 60+ Years o r (1 - 1-dose 75+ series) 01/03/2031 HPV Vaccines Aged Out No longer eligi ble based on patient's age to complete this topic [facility]-HIB Vaccines Aged Out No longer e ligible based on patient's age to complete this topic [facility]-Hepatitis A Vaccines Aged Out No longer eligible based on patient's age to complete this topic [facility]-IPV Vaccines Aged Out No longer e ligible based on patient's age to complete this topic [facility]-Rotavirus Vaccines Aged Out No lo nger eligible based on patient's age to complete this topic Care Teams Medical Billing Assistant Relationship Specialty Start Date End Date Valerie Baron PA [facility] [address] [place] [id number] PCP - General 03/10/21
--- NOTE | 2025-01-07 09:30 | XR_ITS ---
FINAL REPORT CLINICAL HISTORY: postmenopausal screening for osteoporosis COMPARISON: 01/18/2023 FINDINGS: Using L1-4, the bone mineral density of the spine is 0.949 g/cm2, corresponding to T-score of -0.9. Using the left hip, the bone mineral density of the femoral neck is 0.630 g/cm2, corresponding to a T-score of -2.0. Using the right hip, the bone mineral density of the femoral neck is 0.678 g/cm2, corresponding to a T-score of -1.5. NOTE: T-score: Standard deviation compared with peak bone mass of young adult mean. *Following the recommendations of the International Society of Bone densitometry, classification of hip BMD is based on the lower of two T-scores; total hip or femoral neck. IMPRESSION: Normal bone mineral density of the lumbar spine. Diminished bone mineral density of the bilateral hips, consistent with osteopenia. Reviewed, Interpreted and Dictated by Ryan Shipman MD Transcribed by Kiana Walters Authenticated and [facility]
--- NOTE | 2025-01-07 13:00 | MR_ITS ---
FINAL REPORT CLINICAL HISTORY: right sided facial paralysis drooping on right side of face right sided facial pain bells palsy x 1 year ago and face never returned to normal FINDINGS: Multiplanar MR imaging of the brain was performed without and with contrast. There is no evidence of intracranial hemorrhage or mass. There are tiny scattered foci of abnormal signal in the deep white matter. No abnormal extra-axial fluid collection is seen. The ventricular size is within normal limits. There is no evidence of shift of the midline structures. The posterior fossa and brainstem have an unremarkable appearance. No area of abnormal restricted diffusion is identified. No abnormal contrast enhancement is seen. Minimal air-fluid level is seen in the left maxillary sinus. The 7th and 8th nerve root complexes are intact. IMPRESSION: No acute intracranial abnormality identified. Acute left maxillary sinusitis. Reviewed, Interpreted and Dictated by Ryan Shipman MD Transcribed by Divina Thao Authenticated and [facility]
[2025-01-07 13:17] LABS: Blood Urea Nitrogen 13 mg/dl (7-17); Estimated Glomerular Filt Rate 71 ml/min (>60); GFR (African American) 86 ML/MIN (>60)
[2025-01-07] MEDS: SODIUM CHLORIDE 0.9% 10ML SYR (RAD ONLY) 10 ML IV (13:48)
[2025-01-07] MEDS: GADOTERIDOL INJ 20ML SYRINGE 16 ML IV (13:48)
== END 2025-01-07 23:59 | disposition home or self-care (01) ==
LOC: RAD 08:42
PROVIDERS: PCP Nurse Practitioner Family; Visit Provider Nurse Practitioner Family
DX: J01.00 Acute maxillary sinusitis, unspecified (principal); M85.852 Other specified disorders of bone density and structure, left thigh; M85.851 Other specified disorders of bone density and structure, right thigh; G51.0 Bell's palsy; Z78.0 Asymptomatic menopausal state; Z13.6 Encounter for screening for cardiovascular disorders; Z13.820 Encounter for screening for osteoporosis
CPT/HCPCS: 36415; 70553; 76706; 77080; 82565; 84520; A9576

== ENCOUNTER 2025-04-30 15:26 | Outpatient (CLI) | payer BC, SELFPAY ==
--- NOTE | 2025-04-30 15:29 | XR_ITS ---
FINAL REPORT CLINICAL HISTORY: cough/wheezing - no prior CXR FINDINGS: PA and lateral views of the chest are obtained. There is no prior exam for comparison. The cardiac and mediastinal silhouettes are within normal limits. The lungs are clear. There is no pleural effusion, pneumothorax, or acute osseous abnormality. IMPRESSION: No radiographic evidence of acute cardiac or pulmonary disease. Reviewed, Interpreted and Dictated by Sienna Paredes MD Transcribed by Divina Thao Authenticated and . [facility]
== END 2025-04-30 23:59 | disposition home or self-care (01) ==
LOC: RAD 15:27
PROVIDERS: PCP Nurse Practitioner Family; Visit Provider Nurse Practitioner
DX: R05.8 Other specified cough (principal); R06.2 Wheezing
CPT/HCPCS: 71046